=== PATIENT | female | born 1995 | race American Indian/Alaskan Native ===

== ENCOUNTER 2016-08-19 19:54 | Emergency (ER) | payer SELFPAY ==
[2016-08-19 20:10] VITALS: BP 115/76
[2016-08-19] MEDS ORDERED: ROCEPHIN IM ONE (21:22)
[2016-08-19] MEDS ORDERED: XYLOCAINE 1% MPF 5 mL INFILTRATI ONE (21:22)
[2016-08-19] MEDS ORDERED: ZITHROMAX PO ONE (21:22)
--- NOTE | 2016-08-19 21:42 | Emergency Department Report ---
HPI - General Chief Complaint: Urogenital-Female Time Seen by Provider: 08/19/16 21:07 - HPI HPI: 21-year-old female presents today stating she needs to be treated for gonorrhea. Patient was seen at [facility] on 08/17/16. She was diagnosed with acute vaginitis and labial lesion on Diflucan and Flagyl. Patient states she was called the next day and was told that she is positive for gonorrhea. The patient was recommended to follow with her primary care provider for treatment. She denies any medical complaints. Positive for vaginal discharge. Denies fever, chills, nausea, vomiting, chest pain, shortness of breath, abdominal pain, vaginal bleeding, urinary symptoms. ED Past Medical Hx - Past Medical History Previous Medical History?: Yes Hx Hypertension: No Hx Congestive Heart Failure: No Hx Diabetes: No Hx Deep Vein Thrombosis: No Hx Renal Disease: No Hx Sickle Cell Disease: No Hx Seizures: No Hx Asthma: Yes Hx COPD: No Hx HIV: No - Surgical History Past Surgical History?: No - Social History Smoking Status: Never Smoker Substance Use Type: None - Medications Home Medications: Home Medications Medication Instructions Recorded Confirmed Last Taken Type Vit#96/Ferrous Fum/FA 1 each PO QDAY #30 tablet 12/21/13 04/24/1404/23 Rx [ Tablet] Ferrous Sulfate [Feosol 325 MG tab] 325 mg PO BID #120 tablet 04/25/14 Unknown Rx Ibuprofen [Motrin] 600 mg PO Q8H PRN #30 tablet 04/25/14 Unknown Rx Nitrofurantoin [place]/M-Cryst 100 mg PO Q12HR #14 capsule 02/21/15 Unknown Rx [Macrobid CAP] metroNIDAZOLE [Flagyl TAB] 500 mg PO Q12HR #14 tab 02/21/15 Unknown Rx ED Review of Systems ROS: Stated complaint: ABDOMINAL PAIN Other details as noted in HPI Constitutional: denies: chills, fever, malaise Eyes: denies: eye pain ENT: denies: ear pain, throat pain, congestion Respiratory: denies: cough, shortness of breath, wheezing Cardiovascular: denies: chest pain, palpitations Endocrine: no symptoms reported Gastrointestinal: denies: abdominal pain, nausea, vomiting Genitourinary: discharge. denies: urgency, dysuria, frequency, hematuria Musculoskeletal: denies: back pain Neurological: denies: headache, weakness Physical Exam - Physical Exam Vital Signs: Vital Signs 08/19/16 19:57 Temperature 98.6 F Pulse Rate 77 Respiratory 18 Rate Blood Pressure 115/76 O2 Sat by Pulse 100 Oximetry Physical Exam: GENERAL: The patient is well-developed and well-nourished. Patient is in NAD. HEAD: Normocephalic. Atraumatic. CHEST/LUNGS: Clear to auscultation throughout. HEART/CARDIOVASCULAR: Regular rate and rhythm. ABDOMEN: Abdomen is soft, nontender. Bowel sounds normoactive. No guarding or rebound tenderness. Negative for CVA tenderness bilaterally. EXTREMITIES: Peripheral pulses intact. Capillary refill less than 2 seconds. NEURO: Alert and oriented x 3. Normal gait. ED Course Vital Signs 08/19/16 19:57 Temperature 98.6 F Pulse Rate 77 Respiratory 18 Rate Blood Pressure 115/76 O2 Sat by Pulse 100 Oximetry ED Medical Decision Making - Lab Data Vital Signs 08/19/16 19:57 Temperature 98.6 F Pulse Rate 77 Respiratory 18 Rate Blood Pressure 115/76 O2 Sat by Pulse 100 Oximetry - Medical Decision Making 21-year-old female presents today stating she is positive for gonorrhea and with psychiatric treatment. Patient was given ceftriaxone and azithromycin. Patient is in no acute distress at this time. She will be discharged home and is encouraged to follow up with a primary care provider. She is encouraged to return to the emergency room for any worsening symptoms. Critical care attestation.: If time is entered above; I have spent that time in minutes in the direct care of this critically ill patient, excluding procedure time. ED Disposition Clinical Impression: Gonorrhea, Acute vaginitis Disposition: DISCHARGED TO HOME OR SELFCARE Is pt being admited?: No Does the pt Need Aspirin: No Condition: Stable Instructions: Gonococcal Urethritis (ED), Chlamydia Infection (ED) Additional Instructions: Follow with primary care provider. Return to the emergency department if symptoms worsen. Referrals: PRIMARY CARE [Primary Care Provider] - 3-5 Days [facility] [Outside] - 3-5 Days Forms: Work/School Release Form(ED) Time of Disposition: 21:41
== END 2016-08-19 21:42 | disposition home or self-care (01) ==
LOC: ED 19:54
DX: A54.9 Gonococcal infection, unspecified (principal); N76.0 Acute vaginitis; J45.909 Unspecified asthma, uncomplicated
CPT/HCPCS: 96372; 99282; J0696